=== PATIENT | male | born 1985 | race Caucasian/White ===

== ENCOUNTER → 2017-09-21 | Outpatient (CLI) | payer BC ==
[~2017-09-21] MED LIST: ADD25XRPT PO; IBUP800T37 PO; LOR5/325 PO; METH-543 PO; OMEP-218 PO; ONDA4TAB PO; OXYC-865 PO; OXYC1TAB54 PO; PROM-100 PO; TEST200V IM
== END ==
LOC: LAB 14:25
PROVIDERS: ATTEND Internal Medicine Medical Oncology
DX: D45 Polycythemia vera (principal)
CPT/HCPCS: 36415; 85014; 85018; 99195

== ENCOUNTER 2017-11-02 10:34 | Outpatient (RCR) | payer BC ==
[2017-11-02 10:53] VITALS: BP 142/82
== END 2017-11-20 14:23 | disposition home or self-care (01) ==
LOC: ONC 10:34
PROVIDERS: ATTEND Internal Medicine Medical Oncology
DX: D45 Polycythemia vera (principal)
CPT/HCPCS: 85014; 99195

== ENCOUNTER 2018-07-09 08:57 | Outpatient (RCR) | payer BC ==
[2018-04-19 08:21] VITALS: BP 122/83
[2018-04-19 09:20] VITALS: BP 129/83
[2018-05-26 08:33] VITALS: BP 124/83
[2018-05-26 09:40] LABS: PLATELET COUNT, AUTOMATED 200 K/uL (150-450)
--- NOTE | 2018-05-26 13:20 | ONCOLOGY FOLLOW UP NOTE ---
EVENT DATE: May 26, 2018 REASON FOR FOLLOWUP Polycythemia. CHIEF COMPLAINT Fatigue. HISTORY OF PRESENT ILLNESS Erna returns to clinic for a followup visit today. He reports that he has in general been feeling pretty good but is tired due to long hours that he has been working. He continues to undergo periodic therapeutic phlebotomy and he is curious if he can get one today today. He has been having hematocrit checks at the times of his phlebotomies but has had no recent additional laboratory studies performed. He reports no new pain. He denies fever. He has had no leg swelling, redness or pain. He reports no shortness of breath or chest pain. He does have an occasional cough. He reports he has not been smoking. In general, he believes the periodic therapeutic phlebotomies have improved his fatigue over time and he is happy about how things are going. REVIEW OF SYSTEMS Otherwise negative and all systems were reviewed. PAST MEDICAL HISTORY Polycythemia. The patient had received supplemental testosterone in the past, and this was associated with polycythemia. Workup had included a JAK2 mutation that was negative on October 20, 2016. Subsequent labs revealed a low normal erythropoietin level. He has initiated a therapeutic phlebotomy program with significant improvement in his symptoms. CURRENT MEDICATIONS Adderall. ALLERGIES No known drug allergies. SOCIAL HISTORY The patient is a nonsmoker. There is no known history of illicit drug use. He does report that when his prior labs have been performed, he had been drinking fairly heavily, but now he drinks only in moderation and does not get drunk. FAMILY HISTORY There is a reported family history of skin cancer in his grandparents, and Erna believes these were non-melanoma skin cancers. There is no known history of blood disorders. His grandfather had heart disease, but there is no history of diabetes mellitus, unexplained liver disease or joint abnormalities other than osteoarthritis, per his knowledge. VITAL SIGNS Temperature 98.3, blood pressure 124/83, heart rate 79, respirations 16, oxygen saturation is 93% on room air, weight is 95.9 kg. PHYSICAL EXAMINATION GENERAL: Patient is alert and oriented x3, in no apparent distress, sitting in the exam room chair. He appears somewhat tired but is interactive and quite pleasant. HEENT: Exam reveals anicteric sclerae. NEUROLOGIC: Exam is grossly nonfocal and his gait is normal. EXTREMITIES: Exam reveals no edema, clubbing or cyanosis. There is no erythema or tenderness to palpation. SKIN: No concerning rash or lesion. LABORATORY STUDIES Reviewed per the [facility] record. ASSESSMENT AND PLAN Polycythemia. Erna is doing well symptomatically. He is working incredibly long hours and he is fatigued due to this. He is now starting a week off. We reviewed his laboratory studies today. His hematocrit has been held in the 50- 51 range in general with ongoing periodic therapeutic phlebotomies. This is reasonable for him. We spent time today reviewing his prior workup and that there had been some idea that he would go to have additional laboratory studies drawn to include JAK2, Exon 12 and 13, as well as MPL. He does not have any memory of this and I would like to discuss with staff whether this was potentially financially prohibitive. If not, I would like to have these studies checked to get better closure over the etiology of his polycythemia. He is in favor of this as well. He will have a CBC, CMP, ferritin and iron studies drawn today. Therapeutic phlebotomy will continue per protocol. I plan to see him back in one year or sooner if there are questions or concerns. [place]
[2018-07-09 09:13] LABS: PLATELET COUNT, AUTOMATED 212 K/uL (150-450)
[2018-07-09 09:39] VITALS: BP 144/87
[2018-07-09 09:40] VITALS: BP 140/85
== END 2018-07-15 ==
LOC: SPU 08:57
PROVIDERS: ATTEND Internal Medicine Medical Oncology
DX: D45 Polycythemia vera (principal); R53.83 Other fatigue; R05 Cough
CPT/HCPCS: 82040; 82247; 82310; 82374; 82435; 82565; 82728; 82947; 83540; 83550; 84075; 84132; 84155; 84295; 84450; 84460; 84520; 85014; 85018; 85025; 99195; 99212

== ENCOUNTER 2018-09-30 09:18 | Outpatient (RCR) | payer BC ==
[2018-08-02 10:55] VITALS: BP 146/78
[2018-08-02 11:11] LABS: PLATELET COUNT, AUTOMATED 219 K/uL (150-450)
[2018-08-02 11:36] VITALS: BP 123/70
[2018-08-20 15:12] VITALS: BP 155/86
[2018-08-20 15:39] VITALS: BP 140/95
[2018-09-30 09:34] VITALS: BP 138/87
== END 2018-10-31 ==
LOC: SPU 09:18
PROVIDERS: ATTEND Internal Medicine Medical Oncology
DX: D45 Polycythemia vera (principal)
CPT/HCPCS: 36415; 85014; 85025; 99195

== ENCOUNTER 2018-11-08 10:01 | Outpatient (RCR) | payer BC ==
[2018-11-08 12:57] VITALS: BP 123/82
[2018-11-08 13:24] VITALS: BP 119/76
== END 2019-02-06 ==
LOC: SPU 10:01
PROVIDERS: ATTEND Internal Medicine Medical Oncology
DX: D75.1 Secondary polycythemia (principal)
CPT/HCPCS: 85014; 99195